=== PATIENT | male | born 1940 | race Caucasian/White ===

== ENCOUNTER → 2016-07-04 | Outpatient (CLI) | payer MEDICARE, OTHER ==
[~2016-07-04] MED LIST: ASPIRIN81 M1 PO; LIPITOR PO; MULTI-DAY1 TAB PO; NORVASC PO; PREVACID PO; ZOLOFT50 MG PO
--- NOTE | ~2016-07-04 | CT57 ---
[facility] A Service of [facility] RADIOLOGY TEXT RESULTS PATIENT: POLLY SCHULTZ [facility] [id number] : 44 UNIT #: [id number] AGE: [address]: Garret Perdomo MD SEX: M ORDER DR: [id number] [facility]. [place], [place] [address] [id number] O MR#: [id number] [facility] #: [id number] NAME: POLLY SCHULTZ : 1940 SEX: M STUDY DATE/TIME: 07/04/2016 10:36 UNIT: [facility] ROOM: STUDY DESCRIPTION: CT Chest Wo Cont Attending Physician: Garret Perdomo M.D. Referring Physician: Garret Perdomo M.D. Ordering Physician: Garret Perdomo M.D. Primary Care Physician: Garret Perdomo M.D. MEDICAL IMAGING REPORT This report is preliminary unless electronic signature is present EXAM CT of the chest without contrast INDICATIONS 75-year-old male who reportedly had an abnormal chest x-ray at a doctor's office. TECHNIQUE CT of the chest was performed without contrast. Coronal and sagittal reformatted images were obtained. The CT exam was performed with one or more of the following radiation dose reduction techniques: automatic exposure control, adjustment of mA and/or kV according to patient size, and iterative reconstruction. There are no comparison studies available. The comparison chest x-ray is not available. FINDINGS Minimal emphysematous change. There are 2 tiny micronodules in the posterior right upper lobe best seen on sagittal view #45. There is no mass. There is no airspace consolidation. There is no lymphadenopathy. Tiny hiatal hernia. No pleural effusion. Limited imaging of the upper abdomen demonstrates cholelithiasis. Bone windows demonstrate degenerative changes of the thoracic spine. IMPRESSION There are 2 tiny micronodules in the posterior right upper lobe. These could be followed in 1 year to document stability. There is no mass or consolidation. [facility] A Service [facility] RADIOLOGY TEXT RESULTS PATIENT: POLLY SCHULTZ LOCATION: [facility] : 44 UNIT #: [id number] AGE: [address]: Garret Perdomo MD SEX: M ORDER DR: Dictated by... Pedro Verma M.D. THIS IS AN ELECTRONICALLY VERIFIED REPORT Pedro Verma M.D. at 07/05/2016 9:08 AM AMAIRANI/harpal TD: 07/04/2016 13:54 JOB #: [id number] MEDICAL IMAGING REPORT Page 1 of 1 COPY
== END | disposition home or self-care (01) ==
LOC: CCAT 10:10
DX: R91.8 Other nonspecific abnormal finding of lung field (principal)
CPT/HCPCS: 71250